=== PATIENT | male | born 1990 | race Caucasian/White ===

== ENCOUNTER 2021-09-02 15:54 | Emergency (ER) | payer OTHER ==
[~2021-09-02] VITALS: Ht 162.6 cm; Wt 65.8 kg
== END 2021-09-02 18:30 | disposition home or self-care (01) ==
LOC: ER 15:54
DX: S60.211A Contusion of right wrist, initial encounter (principal); W18.30XA Fall on same level, unspecified, initial encounter; Y93.9 Activity, unspecified; Y92.838 Other recreation area as the place of occurrence of the external cause; Y99.9 Unspecified external cause status; Z91.013 Allergy to seafood; Z88.8 Allergy status to other drugs, medicaments and biological substances; Z88.1 Allergy status to other antibiotic agents